=== PATIENT | female | born 1940 | race Caucasian/White ===

== ENCOUNTER 2016-10-16 11:46 | Inpatient (IN) | payer OTHER ==
[~2016-10-16] VITALS: Ht 157.5 cm; Wt 55.6 kg
[~2016-10-16 11:46] MED LIST: AMITRIPTYLINE H10 MG PO; ARAVA20 MG PO; BEN20 PO; CLINDAMYCIN HC300 MG PO; FOLIC ACID1 MG PO; HUMIRA10 MG/0.2 SC; HYDROCHLOROTHIA25 MG PO; LAC PO; LEVAQUIN750 MG PO; LEVOCETIRIZINE D5 M1 PO; LINZESS145 MC1 PO; LIPI20 PO; OMEPRAZOLE40 M1 PO; PANTOPRAZOLE SO40 M1 PO; PREDNISONE1 MG PO; VESICARE5 M1 PO; XARELTO10 M1 PO; ZESTRIL5 MG PO
[2016-10-16 13:06] LABS: PLATELET COUNT 277 x10^3mcL (130-400); RED CELL DISTRIBUTION WIDTH 14.5 % (11.5-14.5)
[2016-10-16 13:07] LABS: BASOPHIL % 2.8 % (0-2)
[2016-10-16 13:16] LABS: CALCIUM 8.8 mg/dL (8.5-10.1); CARBON DIOXIDE 25.7 mmol/L (21-32); CHLORIDE SERUM 97 mmol/L (98-107); CREATININE SERUM 0.9 mg/dL (0.6-1.0); GLUCOSE SERUM 96 mg/dL (74-106); POTASSIUM SERUM 3.1 mmol/L (3.5-5.1); SODIUM SERUM 135 mmol/L (136-145)
[2016-10-16 13:21] LABS: ALBUMIN 3.3 g/dL (3.4-5.0); ALKALINE PHOSPHATASE 78 U/L (46-116); ALT/SGPT 38 U/L (14-59); AST/SGOT 32 U/L (15-37); BILIRUBIN TOTAL 0.42 mg/dL (0.20-1.00); TOTAL PROTEIN, SERUM 7.1 g/dL (6.4-8.2)
[2016-10-16 14:11] LABS: microscopic required? YES; urine erythrocyte TRACE (NEGATIVE)
[2016-10-16 15:26] LABS: AMYLASE 44 U/L (25-115); LIPASE 54 IU/L (73-393)
[2016-10-16 15:34] LABS: T3 TOTAL 0.77 ng/mL
[2016-10-16 15:44] LABS: FREE T4 1.25 ng/dL (0.76-1.46); FREE THYROXINE INDEX 2.9 ug/dL (1.4-4.5); T4(THYROXINE) 8.4 ug/dL (4.7-13.3)
[2016-10-16 15:46] VITALS: BP 139/75
[2016-10-16] MEDS ORDERED: ZESTRIL10 MG PO (16:43)
[2016-10-16] MEDS ORDERED: OMEPRAZOLE40 M1 PO (16:44)
[2016-10-16 17:22] VITALS: BP 139/75
[2016-10-16 21:30] VITALS: BP 132/64
[2016-10-17 05:43] VITALS: BP 138/76
[2016-10-17 05:59] LABS: BASOPHIL % 0.4 % (0-2); PLATELET COUNT 220 x10^3mcL (130-400)
[2016-10-17 06:13] LABS: CALCIUM 7.9 mg/dL (8.5-10.1); CARBON DIOXIDE 22.5 mmol/L (21-32); CHLORIDE SERUM 105 mmol/L (98-107); CHOLESTEROL 138 mg/dL (<200); CHOLESTEROL/HDL RATIO 2.6; CREATININE SERUM 0.9 mg/dL (0.6-1.0); GLUCOSE SERUM 89 mg/dL (74-106); HDL CHOLESTEROL 53 mg/dL (40-60); MAGNESIUM 1.4 mg/dL (1.8-2.4); PHOSPHOROUS 3.5 mg/dL (2.5-4.9); POTASSIUM SERUM 3.5 mmol/L (3.5-5.1); SODIUM SERUM 139 mmol/L (136-145); TRIGLYCERIDES 83 mg/dL (<150)
[2016-10-17 06:40] LABS: RED CELL DISTRIBUTION WIDTH 15.5 % (11.5-14.5)
[2016-10-17 11:20] VITALS: BP 146/73
[2016-10-17 16:37] VITALS: Ht 157.5 cm; Wt 55.6 kg
[2016-10-17 17:42] VITALS: BP 138/64
[2016-10-17 22:42] VITALS: BP 152/73
[2016-10-18 05:18] VITALS: BP 153/82
[2016-10-18 07:31] VITALS: BP 135/75
[2016-10-18 11:28] LABS: BASOPHIL % 0.7 % (0-2); PLATELET COUNT 239 x10^3mcL (130-400)
[2016-10-18 11:30] LABS: RED CELL DISTRIBUTION WIDTH 15.5 % (11.5-14.5)
[2016-10-18 11:37] LABS: CHLORIDE SERUM 105 mmol/L (98-107); CREATININE SERUM 0.9 mg/dL (0.6-1.0); GLUCOSE SERUM 115 mg/dL (74-106); MAGNESIUM 1.8 mg/dL (1.8-2.4); PHOSPHOROUS 2.4 mg/dL (2.5-4.9); POTASSIUM SERUM 3.6 mmol/L (3.5-5.1); SODIUM SERUM 139 mmol/L (136-145)
[2016-10-18 17:34] VITALS: BP 149/86
[2016-10-18 21:26] VITALS: BP 156/63
[2016-10-19 05:17] VITALS: BP 168/83
[2016-10-19 06:15] LABS: BASOPHIL % 0.6 % (0-2); PLATELET COUNT 243 x10^3mcL (130-400)
[2016-10-19 06:21] LABS: CALCIUM 8.3 mg/dL (8.5-10.1); CARBON DIOXIDE 25.7 mmol/L (21-32); CHLORIDE SERUM 106 mmol/L (98-107); CREATININE SERUM 0.8 mg/dL (0.6-1.0); GLUCOSE SERUM 109 mg/dL (74-106); PHOSPHOROUS 3.5 mg/dL (2.5-4.9); POTASSIUM SERUM 3.2 mmol/L (3.5-5.1); SODIUM SERUM 141 mmol/L (136-145)
[2016-10-19 06:40] LABS: RED CELL DISTRIBUTION WIDTH 15.6 % (11.5-14.5)
[2016-10-19 09:19] VITALS: BP 158/85
[2016-10-19] MEDS ORDERED: LAC PO (15:22)
[2016-10-19] MEDS ORDERED: NOVAPLUS VANCO250 MG PO (15:22)
[2016-10-19 15:50] VITALS: BP 158/85
== END 2016-10-19 16:23 | disposition home or self-care (01) | DRG 371 ==
LOC: ED 11:46 → MU 13:32 → DU 13:32 → MU 10-17 06:49
PROVIDERS: Emergency Medicine; Family Medicine; ADMIT Family Medicine
DX: A04.7 Enterocolitis due to Clostridium difficile (principal); N17.0 Acute kidney failure with tubular necrosis; E87.1 Hypo-osmolality and hyponatremia; E44.0 Moderate protein-calorie malnutrition; J84.10 Pulmonary fibrosis, unspecified; E87.6 Hypokalemia; E83.42 Hypomagnesemia; I10 Essential (primary) hypertension; M51.36 Other intervertebral disc degeneration, lumbar region; M06.9 Rheumatoid arthritis, unspecified; E78.5 Hyperlipidemia, unspecified; I25.2 Old myocardial infarction; Z68.22 Body mass index [BMI] 22.0-22.9, adult; Z87.891 Personal history of nicotine dependence; Z86.718 Personal history of other venous thrombosis and embolism; Z86.73 Personal history of transient ischemic attack (TIA), and cerebral infarction without residual deficits; Z86.010 Personal history of colon polyps
CPT/HCPCS: 82962; 83880; 84439; 87046; 87046-59; 94150; J0696; J1956; J3010; J3370; J3475; J3480; J3490; J7030; Q0092

== ENCOUNTER 2016-11-08 15:38 | Inpatient (IN) | payer OTHER ==
[~2016-11-08] VITALS: Ht 157.5 cm; Wt 53.8 kg
[~2016-11-08 15:38] MED LIST changes: +NOVAPLUS VANCO250 MG PO; +ZESTRIL10 MG PO
[2016-11-08 18:06] LABS: BASOPHIL % 0.4 % (0-2); PLATELET COUNT 281 x10^3mcL (130-400)
[2016-11-08 18:07] LABS: RED CELL DISTRIBUTION WIDTH 15.6 % (11.5-14.5)
[2016-11-08 18:08] LABS: CALCIUM 8.6 mg/dL (8.5-10.1); CARBON DIOXIDE 31.7 mmol/L (21-32); CHLORIDE SERUM 99 mmol/L (98-107); CREATININE SERUM 1.2 mg/dL (0.6-1.0); GLUCOSE SERUM 106 mg/dL (74-106); POTASSIUM SERUM 4.2 mmol/L (3.5-5.1); SODIUM SERUM 136 mmol/L (136-145)
[2016-11-08 18:13] LABS: ALBUMIN 3.1 g/dL (3.4-5.0); ALKALINE PHOSPHATASE 76 U/L (46-116); ALT/SGPT 26 U/L (14-59); AMYLASE 56 U/L (25-115); AST/SGOT 22 U/L (15-37); BILIRUBIN TOTAL 0.4 mg/dL (0.20-1.00); LIPASE 63 IU/L (73-393); TOTAL PROTEIN, SERUM 6.8 g/dL (6.4-8.2)
[2016-11-08 21:16] VITALS: BP 119/68
[2016-11-08 21:18] VITALS: Ht 157.5 cm; Wt 53.8 kg
[2016-11-08 21:23] LABS: T3 TOTAL 1.04 ng/mL
[2016-11-08 21:24] LABS: FREE T4 1.16 ng/dL (0.76-1.46); FREE THYROXINE INDEX 3.3 ug/dL (1.4-4.5)
[2016-11-08 21:35] LABS: MAGNESIUM 1.5 mg/dL (1.8-2.4); PHOSPHOROUS 3.9 mg/dL (2.5-4.9)
[2016-11-08 21:36] LABS: CHOLESTEROL/HDL RATIO 2.5
[2016-11-08] MEDS ORDERED: AMITIZA8 MC1 PO (21:58)
[2016-11-08] MEDS ORDERED: LEVOCETIRIZINE D5 M1 PO ×2 (21:59→23:52)
[2016-11-08] MEDS ORDERED: HUMIRA PEN40 MG/0.8 (21:59)
[2016-11-08] MEDS ORDERED: HUMIRA40 MG/0.8 (23:47)
[2016-11-08] MEDS ORDERED: PREDNISONE1 MG (23:48)
[2016-11-08] MEDS ORDERED: ARAVA20 MG (23:49)
[2016-11-08] MEDS ORDERED: LIPI20 PO (23:50)
[2016-11-08] MEDS ORDERED: HCTZ/LISINOPRIL1 TAB PO (23:51)
[2016-11-08] MEDS ORDERED: OMEPRAZOLE40 M1 PO (23:53)
[2016-11-08] MEDS ORDERED: BEN20 PO (23:58)
[2016-11-09] VITALS (7 sets, daily range): BP systolic 83–138; BP diastolic 43–70
[2016-11-09 07:08] LABS: BASOPHIL % 0.6 % (0-2); PLATELET COUNT 246 x10^3mcL (130-400)
[2016-11-09 07:19] LABS: CALCIUM 8.2 mg/dL (8.5-10.1); CHLORIDE SERUM 101 mmol/L (98-107); CREATININE SERUM 1.3 mg/dL (0.6-1.0); GLUCOSE SERUM 116 mg/dL (74-106); MAGNESIUM 2.1 mg/dL (1.8-2.4); PHOSPHOROUS 3.9 mg/dL (2.5-4.9); POTASSIUM SERUM 3.9 mmol/L (3.5-5.1); SODIUM SERUM 137 mmol/L (136-145)
[2016-11-09 07:38] LABS: RED CELL DISTRIBUTION WIDTH 15.9 % (11.5-14.5)
[2016-11-10 05:39] VITALS: BP 112/65
[2016-11-10 05:49] LABS: UA SPECIFIC GRAVITY >=1.030 (1.005-1.035); microscopic required? YES; urine erythrocyte NEGATIVE (NEGATIVE)
[2016-11-10 06:05] LABS: AMPHETAMINE QUAL UR NONE DETECTED (NEG <=1000)
[2016-11-10 06:10] LABS: BASOPHIL % 0.7 % (0-2); PLATELET COUNT 217 x10^3mcL (130-400)
[2016-11-10 06:32] LABS: CALCIUM 7.4 mg/dL (8.5-10.1); CARBON DIOXIDE 20.4 mmol/L (21-32); CHLORIDE SERUM 104 mmol/L (98-107); CREATININE SERUM 0.9 mg/dL (0.6-1.0); GLUCOSE SERUM 84 mg/dL (74-106); MAGNESIUM 1.8 mg/dL (1.8-2.4); PHOSPHOROUS 3.4 mg/dL (2.5-4.9); POTASSIUM SERUM 3.6 mmol/L (3.5-5.1); SODIUM SERUM 136 mmol/L (136-145)
[2016-11-10 07:37] LABS: RED CELL DISTRIBUTION WIDTH 15.8 % (11.5-14.5)
[2016-11-10 10:01] VITALS: BP 100/60
[2016-11-10 14:01] VITALS: BP 123/68
[2016-11-10 18:01] VITALS: BP 130/68
[2016-11-10 20:30] VITALS: BP 120/62
[2016-11-11 05:15] VITALS: BP 156/78
[2016-11-11 06:30] LABS: BASOPHIL % 0.4 % (0-2); PLATELET COUNT 220 x10^3mcL (130-400)
[2016-11-11 06:44] LABS: RED CELL DISTRIBUTION WIDTH 15.3 % (11.5-14.5)
[2016-11-11 11:05] VITALS: BP 169/72
[2016-11-11 14:39] VITALS: BP 146/66
[2016-11-11 17:41] VITALS: BP 127/71
[2016-11-11 21:02] VITALS: BP 124/79
[2016-11-12 05:54] VITALS: BP 143/68
[2016-11-12 06:09] LABS: BASOPHIL % 0.8 % (0-2); PLATELET COUNT 227 x10^3mcL (130-400)
[2016-11-12 06:37] LABS: CALCIUM 7.4 mg/dL (8.5-10.1); CARBON DIOXIDE 23.1 mmol/L (21-32); CHLORIDE SERUM 107 mmol/L (98-107); CREATININE SERUM 0.8 mg/dL (0.6-1.0); GLUCOSE SERUM 102 mg/dL (74-106); MAGNESIUM 1.2 mg/dL (1.8-2.4); PHOSPHOROUS 2.8 mg/dL (2.5-4.9); POTASSIUM SERUM 3.1 mmol/L (3.5-5.1); SODIUM SERUM 140 mmol/L (136-145)
[2016-11-12 07:05] LABS: RED CELL DISTRIBUTION WIDTH 15.6 % (11.5-14.5)
[2016-11-12 08:00] VITALS: BP 157/75
[2016-11-12 17:33] VITALS: BP 145/83
[2016-11-12 21:51] VITALS: BP 131/78
[2016-11-13 05:58] LABS: BASOPHIL % 0.9 % (0-2); PLATELET COUNT 238 x10^3mcL (130-400)
[2016-11-13 06:01] VITALS: BP 133/89
[2016-11-13 06:20] LABS: CALCIUM 7.8 mg/dL (8.5-10.1); CARBON DIOXIDE 24.5 mmol/L (21-32); CHLORIDE SERUM 107 mmol/L (98-107); CREATININE SERUM 0.9 mg/dL (0.6-1.0); GLUCOSE SERUM 103 mg/dL (74-106); MAGNESIUM 1.7 mg/dL (1.8-2.4); PHOSPHOROUS 3.6 mg/dL (2.5-4.9); POTASSIUM SERUM 3.7 mmol/L (3.5-5.1); SODIUM SERUM 140 mmol/L (136-145)
[2016-11-13 06:31] LABS: RED CELL DISTRIBUTION WIDTH 15.5 % (11.5-14.5)
[2016-11-13 09:00] VITALS: BP 138/83
[2016-11-13 10:11] VITALS: BP 145/85
[2016-11-13] MEDS ORDERED: LAC PO (12:10)
[2016-11-13 12:40] VITALS: BP 145/85
[2016-11-13] MEDS ORDERED: VANCOCIN125 MG PO (14:42)
== END 2016-11-13 17:30 | disposition home or self-care (01) | DRG 371 ==
LOC: ED 15:38 → DU 20:37 → MU 11-11 10:28
PROVIDERS: Emergency Medicine; ADMIT Family Medicine
DX: A04.7 Enterocolitis due to Clostridium difficile (principal); N17.0 Acute kidney failure with tubular necrosis; E44.0 Moderate protein-calorie malnutrition; E83.42 Hypomagnesemia; E86.0 Dehydration; K21.9 Gastro-esophageal reflux disease without esophagitis; M06.9 Rheumatoid arthritis, unspecified; J84.10 Pulmonary fibrosis, unspecified; K57.30 Diverticulosis of large intestine without perforation or abscess without bleeding; Z68.21 Body mass index [BMI] 21.0-21.9, adult; Z87.891 Personal history of nicotine dependence; T45.1X5A Adverse effect of antineoplastic and immunosuppressive drugs, initial encounter; Y92.018 Other place in single-family (private) house as the place of occurrence of the external cause; Z79.899 Other long term (current) drug therapy
CPT/HCPCS: 82962; 83880; 84439; 87046; 87046-59; G0378; J1956; J2270; J2405; J3475; J3490; J7030; J7512; Q0092; Q9967

== ENCOUNTER 2017-04-20 17:50 | Emergency (ER) | payer OTHER ==
[~2017-04-20 17:50] MED LIST changes: +AMITIZA8 MC1 PO; +ARAVA20 MG; +HCTZ/LISINOPRIL1 TAB PO; +HUMIRA PEN40 MG/0.8; +HUMIRA40 MG/0.8; +PREDNISONE1 MG; +VANCOCIN125 MG PO
[2017-04-20 20:40] LABS: UA SPECIFIC GRAVITY 1.015 (1.005-1.035); microscopic required? YES; urine erythrocyte TRACE (NEGATIVE)
[2017-04-20 20:42] LABS: BASOPHIL % 0.9 % (0-2); PLATELET COUNT 234 x10^3mcL (130-400)
[2017-04-20 20:43] LABS: RED CELL DISTRIBUTION WIDTH 16.1 % (11.5-14.5)
[2017-04-20 20:50] LABS: CALCIUM 8.9 mg/dL (8.5-10.1); CARBON DIOXIDE 30.3 mmol/L (21-32); CHLORIDE SERUM 97 mmol/L (98-107); CREATININE SERUM 1.1 mg/dL (0.6-1.0); GLUCOSE SERUM 108 mg/dL (74-106); POTASSIUM SERUM 3.3 mmol/L (3.5-5.1); SODIUM SERUM 133 mmol/L (136-145)
[2017-04-20 20:55] LABS: ALKALINE PHOSPHATASE 91 U/L (46-116); ALT/SGPT 28 U/L (14-59); AST/SGOT 25 U/L (15-37); BILIRUBIN TOTAL 0.4 mg/dL (0.20-1.00); TOTAL PROTEIN, SERUM 7.1 g/dL (6.4-8.2)
[2017-04-20 20:57] LABS: ALBUMIN 3.3 g/dL (3.4-5.0)
[2017-04-20 22:16] VITALS: BP 143/71
== END 2017-04-20 22:34 | disposition home or self-care (01) ==
LOC: ED 17:50
PROVIDERS: Emergency Medicine
DX: G89.29 Other chronic pain (principal); M54.5 Low back pain; I10 Essential (primary) hypertension; K21.9 Gastro-esophageal reflux disease without esophagitis; E78.00 Pure hypercholesterolemia, unspecified; M19.90 Unspecified osteoarthritis, unspecified site; G62.9 Polyneuropathy, unspecified; W18.30XA Fall on same level, unspecified, initial encounter; Y93.89 Activity, other specified; Y92.89 Other specified places as the place of occurrence of the external cause; Y99.8 Other external cause status
CPT/HCPCS: J1885; J2270

== ENCOUNTER 2017-11-01 18:46 | Emergency (ER) | payer OTHER ==
[~2017-11-01] VITALS: Ht 152.4 cm; Wt 50.3 kg
[2017-11-01 19:03] VITALS: Ht 152.4 cm; Wt 50.3 kg
[2017-11-01 20:04] LABS: BASOPHIL % 0.4 % (0-2); PLATELET COUNT 277 x10^3mcL (130-400)
[2017-11-01 20:07] LABS: RED CELL DISTRIBUTION WIDTH 15.1 % (11.5-14.5)
[2017-11-01 20:31] LABS: CALCIUM 8.9 mg/dL (8.5-10.1); CARBON DIOXIDE 24.5 mmol/L (21-32); CHLORIDE SERUM 99 mmol/L (98-107); CREATININE SERUM 1.3 mg/dL (0.6-1.0); GLUCOSE SERUM 115 mg/dL (74-106); POTASSIUM SERUM 3.6 mmol/L (3.5-5.1); SODIUM SERUM 136 mmol/L (136-145)
[2017-11-01 20:35] LABS: ALBUMIN 3.6 g/dL (3.4-5.0); ALKALINE PHOSPHATASE 110 U/L (46-116); ALT/SGPT 36 U/L (14-59); AST/SGOT 30 U/L (15-37); BILIRUBIN TOTAL 0.23 mg/dL (0.20-1.00); LIPASE 50 IU/L (73-393); TOTAL PROTEIN, SERUM 7.3 g/dL (6.4-8.2)
[2017-11-01 20:36] LABS: AMYLASE 124 U/L (25-115)
[2017-11-01] MEDS ORDERED: CALTRATE 600 +1 EACH PO (20:59)
[2017-11-01] MEDS ORDERED: TYLENOL WITH CO1 TA2 PO (20:59)
[2017-11-01] MEDS ORDERED: TRAMADOL HCL50 MG PO (21:00)
[2017-11-01] MEDS ORDERED: MEDROL4 MG PO (21:01)
[2017-11-01 22:02] VITALS: BP 85/65
== END 2017-11-01 22:02 | disposition home or self-care (01) ==
LOC: ED 18:46
PROVIDERS: Emergency Medicine
DX: K59.00 Constipation, unspecified (principal); I10 Essential (primary) hypertension; E78.00 Pure hypercholesterolemia, unspecified; M19.90 Unspecified osteoarthritis, unspecified site
CPT/HCPCS: 83880; J1885

== ENCOUNTER 2018-05-27 20:47 | Emergency (ER) | payer OTHER ==
[~2018-05-27] VITALS: Ht 144.8 cm; Wt 52.2 kg
[~2018-05-27 20:47] MED LIST changes: +CALTRATE 600 +1 EACH PO; +MEDROL4 MG PO; +TRAMADOL HCL50 MG PO; +TYLENOL WITH CO1 TA2 PO
[2018-05-27 21:07] VITALS: Ht 144.8 cm; Wt 52.2 kg
[2018-05-27 22:44] LABS: BASOPHIL % 1.1 % (0-2); PLATELET COUNT 237 x10^3mcL (130-400); RED CELL DISTRIBUTION WIDTH 13.6 % (11.5-14.5)
[2018-05-27 23:03] LABS: CALCIUM 8.7 mg/dL (8.5-10.1); CARBON DIOXIDE 27.3 mmol/L (21-32); CHLORIDE SERUM 92 mmol/L (98-107); CREATININE SERUM 0.8 mg/dL (0.6-1.0); GLUCOSE SERUM 101 mg/dL (74-106); POTASSIUM SERUM 3.4 mmol/L (3.5-5.1); SODIUM SERUM 128 mmol/L (136-145)
[2018-05-27 23:08] LABS: ALBUMIN 3.5 g/dL (3.4-5.0); ALKALINE PHOSPHATASE 94 U/L (46-116); ALT/SGPT 27 U/L (14-59); AST/SGOT 27 U/L (15-37); BILIRUBIN TOTAL 0.56 mg/dL (0.20-1.00); LIPASE 48 IU/L (73-393); TOTAL PROTEIN, SERUM 7.8 g/dL (6.4-8.2)
[2018-05-28 01:08] VITALS: BP 155/84
== END 2018-05-28 01:08 | disposition home or self-care (01) ==
LOC: ED 20:47
PROVIDERS: Emergency Medicine
DX: R10.32 Left lower quadrant pain (principal); R10.31 Right lower quadrant pain; K59.00 Constipation, unspecified; I10 Essential (primary) hypertension; G62.9 Polyneuropathy, unspecified; E78.00 Pure hypercholesterolemia, unspecified; M06.9 Rheumatoid arthritis, unspecified
CPT/HCPCS: J0500; J1885; J7030

== ENCOUNTER 2018-10-20 15:14 | Emergency (ER) | payer OTHER ==
[~2018-10-20] VITALS: Ht 160 cm; Wt 63.5 kg
[2018-10-20 15:18] VITALS: Ht 160 cm; Wt 63.5 kg
[2018-10-20 16:27] LABS: BASOPHIL % 1.4 % (0-2); PLATELET COUNT 287 x10^3mcL (130-400)
[2018-10-20 16:31] LABS: CALCIUM 9.6 mg/dL (8.5-10.1); CHLORIDE SERUM 98 mmol/L (98-107); CREATININE SERUM 1.4 mg/dL (0.6-1.0); GLUCOSE SERUM 141 mg/dL (74-106); POTASSIUM SERUM 3.9 mmol/L (3.5-5.1); RED CELL DISTRIBUTION WIDTH 15.1 % (11.5-14.5); SODIUM SERUM 136 mmol/L (136-145)
[2018-10-20 16:36] LABS: ALBUMIN 3.6 g/dL (3.4-5.0); ALKALINE PHOSPHATASE 95 U/L (46-116); ALT/SGPT 27 U/L (14-59); AST/SGOT 17 U/L (15-37); BILIRUBIN TOTAL 0.25 mg/dL (0.20-1.00); LIPASE 40 IU/L (73-393); TOTAL PROTEIN, SERUM 8.1 g/dL (6.4-8.2)
[2018-10-20 19:00] VITALS: BP 160/97
== END 2018-10-20 19:00 | disposition home or self-care (01) ==
LOC: ED 15:14
PROVIDERS: Emergency Medicine
DX: K52.9 Noninfective gastroenteritis and colitis, unspecified (principal); I10 Essential (primary) hypertension; F41.9 Anxiety disorder, unspecified; K21.9 Gastro-esophageal reflux disease without esophagitis; E78.00 Pure hypercholesterolemia, unspecified
CPT/HCPCS: J0500; J1885; J2405

== ENCOUNTER 2019-01-13 10:34 | Emergency (ER) | payer OTHER ==
[~2019-01-13] VITALS: Ht 152.4 cm; Wt 63.5 kg
[2019-01-13 13:31] VITALS: BP 145/73
== END 2019-01-13 13:35 | disposition home or self-care (01) ==
LOC: ED 10:34
DX: S22.089A Unspecified fracture of T11-T12 vertebra, initial encounter for closed fracture (principal); I10 Essential (primary) hypertension; G62.9 Polyneuropathy, unspecified; K21.9 Gastro-esophageal reflux disease without esophagitis; E78.00 Pure hypercholesterolemia, unspecified; Z90.49 Acquired absence of other specified parts of digestive tract; Z90.89 Acquired absence of other organs; W19.XXXA Unspecified fall, initial encounter; Y93.89 Activity, other specified; Y92.89 Other specified places as the place of occurrence of the external cause; Y99.8 Other external cause status
CPT/HCPCS: J1885

== ENCOUNTER 2019-03-16 13:29 | Inpatient (IN) | payer OTHER ==
[~2019-03-16] VITALS: Ht 149.9 cm; Wt 53.1 kg
[2019-03-16] MEDS ORDERED: APAP500 MG PO (14:27)
[2019-03-16] MEDS ORDERED: FLUOXETINE HYDR10 M1 PO (14:27)
[2019-03-16] MEDS ORDERED: CALTRATE 600 +1 TA1 PO (14:28)
[2019-03-16] MEDS ORDERED: CLARITIN10 MG PO (14:28)
[2019-03-16 14:55] LABS: PLATELET COUNT 274 x10^3mcL (130-400); RED CELL DISTRIBUTION WIDTH 13.8 % (11.5-14.5)
[2019-03-16 15:12] LABS: CALCIUM 8.5 mg/dL (8.5-10.1); CARBON DIOXIDE 30.1 mmol/L (21-32); CHLORIDE SERUM 95 mmol/L (98-107); CREATININE SERUM 0.8 mg/dL (0.6-1.0); GLUCOSE SERUM 99 mg/dL (74-106); POTASSIUM SERUM 3.8 mmol/L (3.5-5.1); SODIUM SERUM 132 mmol/L (136-145)
[2019-03-16 15:16] LABS: ALKALINE PHOSPHATASE 78 U/L (46-116); ALT/SGPT 18 U/L (14-59); AST/SGOT 21 U/L (15-37); BILIRUBIN TOTAL 0.4 mg/dL (0.20-1.00); TOTAL PROTEIN, SERUM 7.5 g/dL (6.4-8.2)
[2019-03-16 15:21] LABS: ALBUMIN 3.2 g/dL (3.4-5.0)
[2019-03-16 17:04] LABS: CHOLESTEROL/HDL RATIO 2.5
[2019-03-16 17:26] VITALS: BP 152/70
[2019-03-16 20:39] VITALS: BP 138/65
[2019-03-17 04:53] VITALS: BP 144/76
[2019-03-17 06:57] LABS: CALCIUM 8.8 mg/dL (8.5-10.1); CHLORIDE SERUM 96 mmol/L (98-107); CREATININE SERUM 0.7 mg/dL (0.6-1.0); GLUCOSE SERUM 140 mg/dL (74-106); MAGNESIUM 1.6 mg/dL (1.8-2.4); PHOSPHOROUS 4.2 mg/dL (2.5-4.9); POTASSIUM SERUM 3.9 mmol/L (3.5-5.1); SODIUM SERUM 135 mmol/L (136-145)
[2019-03-17 08:12] VITALS: BP 136/65
[2019-03-17 08:41] LABS: BASOPHIL % 0.5 % (0-2); PLATELET COUNT 264 x10^3mcL (130-400); RED CELL DISTRIBUTION WIDTH 13.7 % (11.5-14.5)
[2019-03-17 11:39] VITALS: BP 122/72
[2019-03-17 14:55] VITALS: BP 122/72
[2019-03-17 15:48] VITALS: BP 137/73
[2019-03-17 21:35] VITALS: BP 145/70
[2019-03-18 06:23] VITALS: BP 155/80
[2019-03-18 07:32] LABS: BASOPHIL % 0.3 % (0-2); PLATELET COUNT 288 x10^3mcL (130-400); RED CELL DISTRIBUTION WIDTH 14.3 % (11.5-14.5)
[2019-03-18 07:48] LABS: CALCIUM 8.6 mg/dL (8.5-10.1); CARBON DIOXIDE 29.5 mmol/L (21-32); CHLORIDE SERUM 99 mmol/L (98-107); CREATININE SERUM 0.9 mg/dL (0.6-1.0); GLUCOSE SERUM 143 mg/dL (74-106); POTASSIUM SERUM 4.3 mmol/L (3.5-5.1); SODIUM SERUM 135 mmol/L (136-145)
[2019-03-18 08:22] VITALS: BP 184/95
[2019-03-18 12:04] VITALS: BP 124/70
[2019-03-18 16:05] VITALS: BP 137/72
[2019-03-18 20:54] VITALS: BP 154/80
[2019-03-19 06:38] VITALS: BP 158/78
[2019-03-19 06:59] LABS: BASOPHIL % 0.1 % (0-2); PLATELET COUNT 284 x10^3mcL (130-400); RED CELL DISTRIBUTION WIDTH 14.1 % (11.5-14.5)
[2019-03-19 07:30] LABS: CALCIUM 8.1 mg/dL (8.5-10.1); CARBON DIOXIDE 27.5 mmol/L (21-32); CHLORIDE SERUM 99 mmol/L (98-107); CREATININE SERUM 0.7 mg/dL (0.6-1.0); GLUCOSE SERUM 131 mg/dL (74-106); POTASSIUM SERUM 4.1 mmol/L (3.5-5.1); SODIUM SERUM 136 mmol/L (136-145)
[2019-03-19 08:39] VITALS: BP 188/89
[2019-03-19 12:10] VITALS: BP 145/62
[2019-03-19 17:20] VITALS: BP 142/86
[2019-03-19 20:49] VITALS: BP 134/74
[2019-03-20 06:39] VITALS: BP 168/76
[2019-03-20 07:29] LABS: BASOPHIL % 0.2 % (0-2); PLATELET COUNT 287 x10^3mcL (130-400); RED CELL DISTRIBUTION WIDTH 13.9 % (11.5-14.5)
[2019-03-20 07:32] LABS: CALCIUM 8.1 mg/dL (8.5-10.1); CARBON DIOXIDE 29.5 mmol/L (21-32); CHLORIDE SERUM 97 mmol/L (98-107); CREATININE SERUM 0.8 mg/dL (0.6-1.0); GLUCOSE SERUM 121 mg/dL (74-106); POTASSIUM SERUM 4.3 mmol/L (3.5-5.1); SODIUM SERUM 134 mmol/L (136-145)
[2019-03-20 09:10] VITALS: BP 157/75
[2019-03-20] MEDS ORDERED: TAMIFLU6 MG/ML PO (10:18)
[2019-03-20 10:46] VITALS: BP 157/75
== END 2019-03-20 14:36 | disposition home or self-care (01) | DRG 193 ==
LOC: ED 13:29 → DU 16:05 → MU 03-19 11:57
PROVIDERS: Emergency Medicine; ADMIT Internal Medicine
DX: J10.1 Influenza due to other identified influenza virus with other respiratory manifestations (principal); N17.0 Acute kidney failure with tubular necrosis; E87.1 Hypo-osmolality and hyponatremia; E44.1 Mild protein-calorie malnutrition; J44.1 Chronic obstructive pulmonary disease with (acute) exacerbation; J84.10 Pulmonary fibrosis, unspecified; R09.02 Hypoxemia; E83.42 Hypomagnesemia; K21.9 Gastro-esophageal reflux disease without esophagitis; I10 Essential (primary) hypertension; E78.00 Pure hypercholesterolemia, unspecified; M06.9 Rheumatoid arthritis, unspecified; M19.90 Unspecified osteoarthritis, unspecified site; I25.2 Old myocardial infarction; Z87.891 Personal history of nicotine dependence; Z86.73 Personal history of transient ischemic attack (TIA), and cerebral infarction without residual deficits
CPT/HCPCS: 36600; 87804; 97110-GP; 97116-GP; G0378; J1956; J2920; J2930; J7030; J7620

== ENCOUNTER 2019-04-01 10:26 | Inpatient (IN) | payer OTHER ==
[~2019-04-01] VITALS: Ht 149.9 cm; Wt 54.4 kg
[~2019-04-01 10:26] MED LIST changes: +APAP500 MG PO; +CALTRATE 600 +1 TA1 PO; +CLARITIN10 MG PO; +FLUOXETINE HYDR10 M1 PO; +TAMIFLU6 MG/ML PO
--- NOTE | 2019-04-01 10:33 | NUR ---
PT. BIB [facility] S/P SYNCOPE EVENT AT HOME TODAY. PER MEDICS PT. FELL ON GROUND AND UNSURE IF SHE HIT HER HEAD. PT. C/O LOWER ABD PAIN AND CONSTIPATION. PT. AAOX4, TALKING AND RESPONDING APPROPRIATELY. NO TRAUMA OR WOUNDS NOTED. PT. PLACED ON FULL ICT DEVELOPER, 20G IV NOTED TO BE IN LEFT HAND. MEDICS REPORTS BS [address] CANTU AT BEDSIDE FOR MSE.
--- NOTE | 2019-04-01 11:11 | NUR ---
DAUGHTER AND CORPORATE GIVING MANAGER AT BEDSIDE AND STATES PT. FELL ON FLOOR, HIT BACK OF HER HEAD, AND HAD AN EPISODE OF LOC. DR. CANTU AT BEDSIDE
[2019-04-01 11:14] LABS: BASOPHIL % 0.9 % (0-2); PLATELET COUNT 215 x10^3mcL (130-400); RED CELL DISTRIBUTION WIDTH 13.7 % (11.5-14.5)
--- NOTE | 2019-04-01 11:18 | NUR ---
PT. STATES SHE IS UNABLE TO VOID AT THIS TIME AND REFUSED STRAIGHT CATH. INFORMED HER WE WILL PLACE HER ON BEDPAN AFTER IV INFUSION IS COMPLETE. VERBALIZED UNDERSTANDING.
--- NOTE | 2019-04-01 11:22 | NUR ---
PT. TAKEN TO CT VIA RAKESH
[2019-04-01 11:50] LABS: CALCIUM 7.5 mg/dL (8.5-10.1); CARBON DIOXIDE 30.7 mmol/L (21-32); CHLORIDE SERUM 101 mmol/L (98-107); CREATININE SERUM 0.6 mg/dL (0.6-1.0); GLUCOSE SERUM 117 mg/dL (74-106); POTASSIUM SERUM 3.2 mmol/L (3.5-5.1); SODIUM SERUM 136 mmol/L (136-145)
[2019-04-01 11:55] LABS: ALKALINE PHOSPHATASE 68 U/L (46-116); ALT/SGPT 25 U/L (14-59); AST/SGOT 18 U/L (15-37); BILIRUBIN TOTAL 0.42 mg/dL (0.20-1.00); CHOLESTEROL 158 mg/dL (<200)
--- NOTE | 2019-04-01 11:57 | NUR ---
PT. LAYING ON GURNEY IN POSITION OF COMFORT. BREATHING E/U. DENIE PAIN AT THIS TIME. FAMILY AT BEDSIDE. WILL CONTINUE TO MONITOR.
[2019-04-01 12:08] LABS: ALBUMIN 2.6 g/dL (3.4-5.0); HDL CHOLESTEROL 71 mg/dL (40-60)
--- NOTE | 2019-04-01 12:27 | NUR ---
PT. STATES SHE NEEDS TO HAVE A BM. ASSISTED UP TO RESTROOM. GAIT SLOW AND STEADY. REPORTS SHE HAD A SMALL BM. WILL CONTINUE TO MONITOR.
--- NOTE | 2019-04-01 12:55 | NUR ---
REPORT GIVEN TO VIDYA MESSINA IN TELE DEPARTMENT FOR FURTHER CARE OF PATIENT. ALL QUESTIONS AND CONCERNS ADDRESSED.
[2019-04-01 13:02] LABS: MAGNESIUM 1.4 mg/dL (1.8-2.4); PHOSPHOROUS 3.2 mg/dL (2.5-4.9)
--- NOTE | 2019-04-01 13:04 | NUR ---
BEBETO CONCRETE PUDDLER AT BEDSIDE AND PATIENT STARTED TO HAVE EIPISODE OF EMESIS. VERBAL ORDER FOR ZOFRAN IV ORDERED. ORDER FOR CT ABD AND INFULENZA SWAB ORDERED BY DR. CANTU. VIDYA MESSINA IN TELE MADE AWARE PT. STILL IN ED FOR FURTHER TESTING AND WILL CALL BACK WHEN PT. IS GOING TO FLOOR.
--- NOTE | 2019-04-01 13:09 | NUR ---
PT. TAKEN TO CT VIA RAKESH
[2019-04-01 13:29] LABS: microscopic required? NO
--- NOTE | 2019-04-01 13:39 | NUR ---
PT. UP TO RESTROOM TO VOID.
[2019-04-01 13:43] LABS: urine erythrocyte NEGATIVE (NEGATIVE)
--- NOTE | 2019-04-01 14:13 | NUR ---
PT. NOTED TO HAVE B/P READING OF AND DR. CANTU MADE AWARE AND NS 500ML BOLUS ORDERED. PT. AAOX4, TALKING AND RESPONDING APPROPRAITELY. DENIES FEELING DIZZY AT THIS TIME. FAMILY AT BEDSIDE. WILL CONTINUE TO MONITOR.
--- NOTE | 2019-04-01 15:25 | NUR ---
PT. LAYING ON GURNEY IN POSITION OF COMFORT. BREATHING E/U. NO APPARENT DISTRESS NOTED. CALL LIGHT IN REACH. WILL CONTINUE TO MONITOR.
--- NOTE | 2019-04-01 15:46 | NUR ---
PT. REPORTS SINGH 09/17 AT THIS TIME. TYLENOL PO ORDERED AND GIVEN. WILL CONTINUE TO MONITOR.
--- NOTE | 2019-04-01 15:47 | NUR ---
LAB AT BEDSIDE
[2019-04-01 17:01] VITALS: BP 139/57
--- NOTE | 2019-04-01 17:01 | NUR ---
PT. TRANSFERED TO TELE DEPARMENT FOR FURTHER CARE. TRANSFERED BY GARY MESSINA AND EMT. PT. AAOX4, TALKING AND RESPONDING APPROPRIATELY, BREATHING E/U. NAD. STABLE AT TIME OF TRANSFER.
--- NOTE | 2019-04-01 17:15 | NUR ---
RECEIEVED PT FROM ER, PT ADMIT FOR SYNCOPE, PT IS A/O X4, VERBAL RESPOSIVE, C/P HEADACHE 4/10 AT THIS TIME, LUNG SOUND CONGESTED., PRODUCTIVE COUGH, BUT DENY ANY SOB, PT IS ON 2L/MIN O2 VIA NC. PO2 95%, PT IS ON TELE 19, NSR, DENY ANY CHEST PAIN OR DISCOMFORT, BOWEL SOUND PRESENT ALL 4 QUADRANTS, NO DISTENTION, NO TENDER. PEDAL PULSE PRESENT BOTH FEET, NO EDEMA, IV AT LEFT HAND, NO LEAKING,NO INFILTRAITON. ALL ADLS ASSIST, ALL NEED MET, CALL LIGHT IN REACH, WILL CONTINUE TO MONITOR.
--- NOTE | 2019-04-01 18:50 | NUR ---
RECEIVED PATIENT FROM ER AND HAD BEEN HAVING SOB ON EXERTION AND A NON PRODUCTIVE COUGH. SHE WAS NAUSEATED AND HAD AN EMESIS IN THE ER AND IS NPO AT THIS ITME. SHE HAS RECEIVED POTASSIUM AND NOW RUNNING MAGNESIUM AND WILL GIVE ZITHROMAX WHEN RECEIVED. PATIENT IS DANISH SPEAKING WITH SOME [place] AND DAUGHTER AT BEDSIDE AND SPEAKS [place] AND IS SUPPORTIVE WITH CARE. PATIENT AT THIS TIME IS RESTING QUIETLY AND NOTED WHEEZING TO THE UPPER LOBES AND DIMINISHED TO THE LOWER AND HAS A WHEEZING NON PRODUCTIVE COUGH WITH RALES HEARD. SHE HAS ACTIVE BOWEL SOUNDS AND PULSES PALPABLE AND SKIN IS WARM AND DRY. SHE HAS HAD BEEN ADMITTED RECENTLY FOR PNEUMONIA PRIOR AND SHE SEEMS TO HAVE NO COMPLETELY RECOVERED PER THE FAMILY. FLUIDS ARE RUNNING ORDERED.
--- NOTE | 2019-04-01 19:30 | NUR ---
REC'D PT FROM DAY NURSE. FAMILY AT BEDSIDE. PT RESTING IN BED. AAOX4, SPEECH CLEAR, FOLLOWS COMMADNS. C/O SINGH. NO TYLENOL YET DUE. WILL ASK FOR ALT PAIN MED. TELE 19. DENIES CP, DIZZINESS, OR PALPITATIONS. DENIES RESP DISTRESS OR SOB. BREATHING EVEN/UNLABORED ON RA. C/O DRY COUGH. NO EDEMA NOTED. ABD SOFT/FLAT. DENIES ABD PAIN, TENDERNESS, OR N/V. VOIDING FREELY. GEN WEAKNESS. AMB WITH MIN ASSIST. IV TO LFA PATENT AND INFUSING, SITE WNL. ECCHYMOSIS BUE. CALL LIGHT WITHIN REACH, BED AT LOWEST POSITION. WILL CONTINUE TO MONITOR.
--- NOTE | 2019-04-01 19:45 | NUR ---
HUNG THE ZITHROMAX ORDERED. PATIENT HAS VISITORS AT BEDSIDE.PER THE PATIENT FAMILY SHETAKES A LOT OF DIFFERENT PAIN MEDICATIONS AT HOME. SHE IS ASKING NOW FOR SOMETHING FOR HEADACHE. TYLENOL IS ORDERED BUT TOO SOON. WILL ADVISE THE SIDDHARTH LOVE INDICATED.
[2019-04-01 20:35] VITALS: BP 148/79
--- NOTE | 2019-04-01 23:19 | NUR ---
PT C/O ABD PAIN AND SINGH 6/10, DRY COUGH, AND NOT BEING ABLE TO HAVE A BM. NORCO, ROBITUSSIN, AND LACTULOSE GIVEN PER ORDER.
--- NOTE | 2019-04-02 00:45 | NUR ---
PT RESTING IN BED WITH EYES CLOSED. LAYING ON R SIDE. NO SIGNS OF DISTRESS OR PAIN NOTED. BREATHING EVEN/UNLABORED ON 1L O2 VIA NC. CALL LIGHT WITHIN REACH, BED AT LOWEST POSITION. WILL CONTINUE TO MONITOR.
--- NOTE | 2019-04-02 04:36 | NUR ---
PT WOKEN UP FOR VITALS. COLD PRESS LOADER FOUND LFA SKIN TEAR. RED WOUND BED. 4.4 X 1.5 CM. PICTURE OBTAINED. CLEANSED WITH NS, PATTED DRY, APPLIED ADAPTIC AND SECURED WITH ISLAND DRESSING.
--- NOTE | 2019-04-02 05:37 | NUR ---
PT RESTING IN BED. C/O 09/17 ABD PAIN. DENIES N/V OR DIZZINESS. NORCO GIVEN PER ORDER. BREATHING EVEN/UNLABORED ON RA. NO SIGNIFICANT CHANGES DURING SHIFT. CALL LIGHT WITHIN REACH, BED AT LOWEST POSITION. WILL CONTINUE TO MONITOR.
[2019-04-02 07:21] LABS: BASOPHIL % 0.5 % (0-2); PLATELET COUNT 220 x10^3mcL (130-400); RED CELL DISTRIBUTION WIDTH 13.6 % (11.5-14.5)
[2019-04-02 07:59] LABS: CALCIUM 7.7 mg/dL (8.5-10.1); CARBON DIOXIDE 27.9 mmol/L (21-32); CHLORIDE SERUM 100 mmol/L (98-107); CREATININE SERUM 0.7 mg/dL (0.6-1.0); GLUCOSE SERUM 100 mg/dL (74-106); POTASSIUM SERUM 3.5 mmol/L (3.5-5.1); SODIUM SERUM 135 mmol/L (136-145)
[2019-04-02 08:21] VITALS: BP 134/70
--- NOTE | 2019-04-02 08:39 | NUR ---
[place] [address] - RECEIVED PATIENT FROM NIGHT NURSE. AWAKE, ALERT AND APPEARS ORIENTED. IV INFUSING D5NS AT 125 ML/HR. NO NAUSEA AT THIS TIME. RESPIRATIONS REGULAR. AT 0750 - CARDIAC ECHO IN PROGRESS. AT 0830 - PATIENT USED BEDSIDE COMODE FOR LARGE BM. BACK IN BED. REMAINS NPO. DENIES ANY NAUSEA AT THIS TIME
--- NOTE | 2019-04-02 09:13 | NUR ---
ECHOCARDIOGRAM COMPLETED.
[2019-04-02 12:05] VITALS: BP 126/60
--- NOTE | 2019-04-02 14:15 | NUR ---
AT 0930 - HAS BEEN SEEN BY PHYSICAL THERAPIST. PATIENT IS USING BEDSIDE COMODE WITH ASSISTANCE. AT 1100 - AMBULATED TO BATHROOM AND BACK TO BED. PATIENT APPEARS UNSTEADY. REQUIRES ASSISTANCE. PATIENT HAS HAD NO NAUSEA THIS MORNING AND IS EXPRESSING WISH TO EAT. DIET HAS BEEN ADVANCED TO CLEAR LIQUID. AT 1240 - SAT UP IN BED FOR LUNCH. AT 1330 - RECEIVED CALL FROM PATIENT'S DAUGHTER. UPDATED ON PATIENT CONDITION AND PLAN. AT 1355- MEDICATED WITH NORCO FOR C/O NECK AND BACK PAIN. ALSO GIVEN MG-OXIDE PO FOR MG LEVEL OF 1.7. PATIENT COMMENCED ON IV FLAGYL. FIRST DOSE IN PROGRESS.
--- NOTE | 2019-04-02 15:52 | NUR ---
PATIENT SLEPT FOR A TIME AFTER RECEIVING NORCO. REPORTS THAT PAIN IN NECK HAS SUBSIDED.
[2019-04-02 16:28] VITALS: BP 117/49
--- NOTE | 2019-04-02 17:33 | NUR ---
PATIENT'S DAUGHTER VISITING. ASSISTING PATIENT TO BATHROOM AND WITH NEEDS.
--- NOTE | 2019-04-02 19:06 | NUR ---
PATIENT WAS ABLE TO TOLERATED 100% OF CLEAR LIQUID DINNER. NO C/O NAUSEA OR VOMITING. C/O NECK PAIN AND WAS MEDICATED WITH NORCO PER EMAR. IV IN RAC LEAKING; CATHETER REMOVED INTACT AND IV RESITED IN RFA. IN ZITHROMAX NOW IN PROGRESS.VSS. AFEBRILE. RESPIRATIONS REGULAR. NO COUTHING THIS PM. DAUGHTER REMAINS AT BEDSIDE. WILL ENDORSE CARE TO NIGHT NURSE.
--- NOTE | 2019-04-02 19:20 | NUR ---
REC'D PT FROM DAY NURSE. DAUGHTER AT BEDSIDE. PT RESTING IN BED. AAOX4, SPEECH CLEAR, FOLLOWS COMMANDS. TELE 19. DENIES CP, DIZZINESS, OR PALPITATIONS. NO EDEMA NOTED. DENIES RESP DSITRESS OR SOB. BREATHING EVEN/UNLABORED ON 1L O2 VIA NC, SPO2 98%. REPORTS COUGH IS RESOLVING. ABD SOFT/ROUND. DENIES ABD PAIN, TENDERNESS, OR N/V. VOIDING FREELY. GEN WEAKNESS. UP WITH ASSIST AND PHYSICAL THERAPY. LFA DRESSING CDI. MILD BUE ECCHYMOSIS. REPORTS MILD PAIN TO R ARM, TOLERABLE. IV HAD JUST INFILTRATED. ICE PACK APPLIED. IV TO RFA PATENT AND INFUSING, SITE WNL. CALL LIGHT WITHIN REACH, BED AT LOWEST POSITION. WILL CONTINUE TO MONITOR.
[2019-04-02 20:32] VITALS: BP 109/51
--- NOTE | 2019-04-03 00:23 | NUR ---
PT RESTING IN BED WITH EYES CLOSED. NO SIGNS OF DISTRESS OR PAIN NOTED. BREATHING EVEN/UNLABORED ON RA. CALL LIGHT WITHIN REACH, BED AT LOWEST POSITION. WILL CONTINUE TO MONITOR.
[2019-04-03 05:04] VITALS: BP 120/57
--- NOTE | 2019-04-03 05:27 | NUR ---
PT RESTING IN BED. SPO2 86% ON RA. 1L NC APPLIED, SPO2 96%. DENIES RESP DISTRESS OR SOB. BREATHING EVEN/UNLABORED. C/O BLE PAIN 09/17. NORCO GIVEN PER ORDER. NO SIGNIFICANT CHANGES DURING SHIFT. CALL LIGHT WITHIN REACH, BED AT LOWEST POSITION. WILL ENDORSE TO DAY NURSE.
[2019-04-03 07:53] LABS: CALCIUM 7.7 mg/dL (8.5-10.1); CARBON DIOXIDE 25.1 mmol/L (21-32); CHLORIDE SERUM 102 mmol/L (98-107); CREATININE SERUM 0.6 mg/dL (0.6-1.0); GLUCOSE SERUM 100 mg/dL (74-106); MAGNESIUM 1.6 mg/dL (1.8-2.4); POTASSIUM SERUM 3.3 mmol/L (3.5-5.1); SODIUM SERUM 137 mmol/L (136-145)
[2019-04-03 07:56] LABS: BASOPHIL % 0.4 % (0-2); PLATELET COUNT 202 x10^3mcL (130-400); RED CELL DISTRIBUTION WIDTH 14.1 % (11.5-14.5)
--- NOTE | 2019-04-03 08:21 | NUR ---
AT 0720 - RECEIVED PATIENT FROM NIGHT NURSE. PATIENT AWAKE, ALERT AND APPEARS ORIENTED X 4. RESPIRATIONS REGULAR. PATIENT ON O2 VIA NC AT 1L/MIN. IV INFUSING NS AT 100 ML/HR. PATIENT APPEARS COMFORTABLE AT THIS TIME. AT 0804 - RECEIVED CALL FROM LAB WITH WBC OF 20.4 PATIENT SITTING ON SIDE OF BED EATING CLEAR LIQUID BREAKFAST. WOULD LIKE TO EAT SOLID FOOD. AT 0815 - SPOKE WITH FACETER KARLOS. NOTIFIED OF ELEVATED WBC OF 20.4. ALSO MADE AWARE OF PATIENT'S WISH TO HAVE ADVANCED DIET. SHE WILL REVIEW.
[2019-04-03 08:38] VITALS: BP 113/56
--- NOTE | 2019-04-03 11:03 | NUR ---
AT 0940 - HHAS KARLOS MADE AWARE OF PATIENT'S LOW BP 80'S/50'S. MORNING DOSE OF LISINOPRIL WAS HELD. RECEIVED ORDERS FOR CONSULT WITH VENDOR QUALITY SUPERVISOR. AT 1040 - GIVEN 40 MEQ KCL PO FOR K+ LEVEL OF 3.3 AND COMMENCED MG RIDER OF 2 GRAMS FOR MG LEVEL OF 1.6 SPOKE WITH PATIENT'S DAUGHTER RUMA. UPDATED ON PATIENT.
[2019-04-03 12:14] VITALS: BP 113/60
--- NOTE | 2019-04-03 14:32 | NUR ---
AT 1345 - PATIENT AMBULATED TO BATHROOM AND BACK TO BED. HAS HAD SMALL SEMI-LIQUID BM. STOOL COLLECTED FOR CULTURE. TAKEN TO LAB. PATIENT C/O NECK PAIN. MEDICATED WITH NORCO PER EMAR. MADE COMFORTABLE IN BED.
[2019-04-03 16:47] VITALS: BP 112/54
--- NOTE | 2019-04-03 19:11 | NUR ---
QUIET AFTERNOON. FAMILY WITH PATIENT AND INVOLVED WITH CARE. VSS. AFEBRILE. IV INFUSING NS AT 100 ML/HR. PATIENT HAS BEEN COMMENCED ON IV ZOSYN AND 1ST DOSE WAS ADMINISTERED. PATIENT TOLERATING REGULAR DIET. NO SWALLOWING DIFFICULTIES. PATIENT AMBULATES TO BATHROOM WITH ASSSITANCE FOR TOILET NEEDS. CARE ENDORSED TO NIGHT NURSE.
--- NOTE | 2019-04-03 19:20 | NUR ---
REC'D PT FROM DAY NURSE. PT RESTING IN BED. AAOX4, SPEECH CLEAR, FOLLOWS COMMANDS. TELE 19. DENIES CP, DIZZINESS, OR PALPITATIONS. DENIES RESP DISTRESS OR SOB. BRAETHING EVEN/UNLABORED ON RA, SPO2 93%. NO EDEMA NOTED. ABD SOFT/ROUND. DENIES ABD PAIN, TENDERNESS, OR N/V. VOIDING FREELY. GEN WEAKNESS. UP WITH SOME ASSIST. LFA DRESSING CDI. SOME BUE ECCHYMOSIS. IV TO RFA PATENT AND INFUSING, SITE WNL. CALL LIGHT WITHIN REACH, BED AT LOWEST POSITION, BED ALARM ON. WILL CONTINUE TO MONITOR.
[2019-04-03 21:25] VITALS: BP 120/54
--- NOTE | 2019-04-04 01:14 | NUR ---
PT RESTING IN BED WITH EYES CLOSED. NO SIGNS OF DISTRESS NOTED. BREATHING EVEN/UNLABORED ON 1L O2 VIA NC. CALL LIGHT WITHIN REACH, BED AT LOWEST POSITION, BED ALARM ON. WILL CONTINUE TO MONITOR.
[2019-04-04 05:22] VITALS: BP 142/78
--- NOTE | 2019-04-04 06:14 | NUR ---
PT RESTING IN BED WITH EYES CLOSED. BREATHING EVEN/UNLABORED ON 1L O2 VIA NC. NO SIGNS OF DISTRESS NOTED. PT AWAKENS WITH VERBAL STIMULI. DENIES PAIN AT THIS TIME. ISLAND DRESSING TO LFA REMOVED- MINIMAL SEROSANGUINEOUS DRAINAGE TO DRESSING. SKIN TEAR NOTED WITH PINK WOUND BED. 4.4 X 1.5 CM. WEEKLY PICTURE OBTAINED. CLEANSED WITH NS, PATTED DRY, APPLIED ADAPTIC THEN ISLAND DRESSING. NO SIGNIFICANT CHANGES DURING SHIFT. CALL LIGHT WITHIN REACH, BED AT LOWEST POSITION. WILL ENDORSE TO DAY NURSE.
[2019-04-04 06:23] LABS: BASOPHIL % 1.2 % (0-2); PLATELET COUNT 196 x10^3mcL (130-400); RED CELL DISTRIBUTION WIDTH 14.2 % (11.5-14.5)
[2019-04-04 06:30] LABS: CALCIUM 7.5 mg/dL (8.5-10.1); CHLORIDE SERUM 105 mmol/L (98-107); CREATININE SERUM 0.8 mg/dL (0.6-1.0); GLUCOSE SERUM 98 mg/dL (74-106); MAGNESIUM 1.6 mg/dL (1.8-2.4); POTASSIUM SERUM 3.5 mmol/L (3.5-5.1); SODIUM SERUM 140 mmol/L (136-145)
--- NOTE | 2019-04-04 07:30 | NUR ---
RECEIVED PATIENT IN BED ALERT ORIENTED. TELEL 19 NSR. IVF INFUSING WELL SITE PATENT. BUE ECCHYMOSIS AND LF/A SKIN TEAR WITH DRESSING C/D/I. O2 ON AT 1L VIA N/C. R.T. PROTOCOL IN PLACE. RESP EVEN AND UNLABORED, LUNGS DIMINISHED. NO C/O PAIN OR DISCOMOFORT.
[2019-04-04 09:45] VITALS: BP 149/83
[2019-04-04 13:29] VITALS: BP 118/61
--- NOTE | 2019-04-04 15:43 | NUR ---
PATIENT REMAINS IN BED APPEARS TO BE RESTING WELL. IVF INFUSING, IV SITE PATENT. NO FURHTEER C/O COUGH OR ABD PAIN. CONDITION APPEARS STABLE AT THIS TIME.
--- NOTE | 2019-04-04 16:35 | NUR ---
I HAVE REVIEWED THE DATA COLLECTION BY ADDICTION SOCIAL WORKER (NAME): ENTERED ON (DATE/TIME): I CONCUR WITH THE DATA AND ANY EXCEPTIONS OR COMMENTS ARE LISTED BELOW: PATIENT'S PLAN OF CARE WAS DISCUSSED AND REVIEWED WITH ADDICTION SOCIAL WORKER:KESHAV VARGAS
[2019-04-04 16:49] VITALS: BP 137/67
--- NOTE | 2019-04-04 18:01 | NUR ---
NO CHANGE IN PATIENT'S CONDITION NOTED THIS SHIFT. PATIENT'S APPETITE POOR. ONLY TAKING SPRITE AND JUICE AND CRACKERS TODAY, PER PATIENT SHE IS AFRAID SHE WILL HAVE DIARRHEA. NO DIARRHEA NOTED THIS SHIFT. PATIENT VOIDING WELL ON BSC. NO FURHTER C/O PAIN OR DISCOMOFRT.
--- NOTE | 2019-04-04 19:15 | NUR ---
CARE ASSUMED FROM OUTGOING AUTO BODY REPAIR TECHNICIAN. PT RESTING COMFORTABLY IN BED. DAUGHTER AT BEDSIDE. NO ACUTE DISTRESS NOTED. EVEN AND UNLABORED RESPIRATIONS ON 1LNC. ON TELE# [address] 117, REPOSITIONING PT IN BED. IV INTACT. DRESSING TO LFA, CDI. BED IN LOWEST POSITION. SIDE RAILS UPX2. CALL LIGHT WITHIN REACH. WILL CONTINUE TO MONITOR.
[2019-04-04 19:23] VITALS: BP 144/80
--- NOTE | 2019-04-05 00:21 | NUR ---
PT RESTING COMFORTABLY IN BED WITH EYES CLOSED. NO ACUTE DISTRESS NOTED. EVEN AND UNLABORED RESPIRATIONS ON 1LNC. WILL CONTINUE TO MONITOR.
--- NOTE | 2019-04-05 06:11 | NUR ---
PT SLEPT IN INTERVALS THROUGHOUT THE SHIFT. ALL NEEDS TENDED TO AND MET. C/O ABD PAIN MEDICATED PER EMAR. EVEN AND UNLABORED RESPIRATIONS ON 1LNC, C/O SOB AT TIMES, RT PROTOCOL IN PLACE. ON TELE # 19 READING SR/ST. IV PATENT AND INTACT RUNNING FLUIDS PER EMAR. DRESSING TO LFA, CDI. BED IN LOWEST POSITION. SIDE RAILS UPX2. CALL LIGHT WITHIN REACH. WILL CONTINUE TO MONITOR.
[2019-04-05 06:22] VITALS: BP 150/72
[2019-04-05 06:25] LABS: BASOPHIL % 1.3 % (0-2); PLATELET COUNT 201 x10^3mcL (130-400); RED CELL DISTRIBUTION WIDTH 13.5 % (11.5-14.5)
[2019-04-05 06:40] LABS: CALCIUM 7.6 mg/dL (8.5-10.1); CARBON DIOXIDE 29.1 mmol/L (21-32); CHLORIDE SERUM 100 mmol/L (98-107); CREATININE SERUM 0.7 mg/dL (0.6-1.0); GLUCOSE SERUM 104 mg/dL (74-106); MAGNESIUM 1.6 mg/dL (1.8-2.4); POTASSIUM SERUM 3.1 mmol/L (3.5-5.1); SODIUM SERUM 138 mmol/L (136-145)
--- NOTE | 2019-04-05 07:27 | NUR ---
PT LYING IN BED, EYES CLOSED. AROUSABLE TO VOICE. BREATHING EQUAL/UNLAOBRED ON 1L/NC. IVF RUNNING AT 100ML/HR. NO REDNESS/SWELLING TO IV SITE. BED IN LOW POSITION, CALL LIGHT IN REACH, SAFETY PRECAUTIONS IN PLACE. WILL CONTINUE TO MONITOR
[2019-04-05 08:15] VITALS: BP 164/83
[2019-04-05 10:00] VITALS: BP 148/78
[2019-04-05 12:06] VITALS: BP 141/78
--- NOTE | 2019-04-05 12:28 | NUR ---
Initial Nutrition Assessment: 240T/B QUENTIN PAEZ IA HR Dx: Syncope s/p fall PMHx: Colitis, Influenza B, Gastritis, Hx of stroke, Rheumatoid Arthritis, Disc Herniation, HTN, Hypocholesteremia, Pulmonary Fibrosis, ND PSHx: Appendectomy, Cholecystectomy, , Hysterectomy, polypectomy Labs: K 3.1L, BUN 4.0L, CA7.6L, MG 1.6L, A1C 6.3H, WBC 11.7H Meds: Claritin, Colace, Lipitor, Oscal, Zestril, Zithromax, Zofran, zosyn Diet: regular, high fiber PO intake since admission: (04/05) breakfast 85%, (04/04) 0% all meals Ht: 149.86 cm (59") Wt: 54.4 kg (120#) BMI: 24.2 kg/m2 Bed scale: 120# IBW: 95# (43 kg) %IBW: 126 UBW: 120# Age: 78/F Food Allergies: NKFA Skin: L forearm skin tear Mitchel: 20 Edema: none GI: Last BM: 04/04 Per H&P, Pt is a 78-year-old Frisian speaking Female who was brought in by EMS from home after witnessed syncopal episode just prior to arrival by her caregiver. No reports of head trauma, per EMS. The patient complained of lower abdominal pain and was noted to have 1 episode of non-bloody, non-bilious vomiting on route to the ED. RD Note (04/05): Patient said that she ate some of her breakfast this morning and says that she has poor appetite. Per progress note (04/04), Patient is resting in bed noted to have O2 via NC 3LPM. Problem with: N/V/D/C: none at this time Problems with: Chewing: Swallowing: none Current appetite: poor Recent wt change: none %wt change: n/a Vitamin/Supplement use: none Special diet at home: Regular Physical activity: sedentary Nutrition education given: none at this time, pt was restless and appeared to be in pain Food-drug interactions: none Education given: n/a Estimated Nutritional Needs Based on current body weight (54.4 kg) Energy: 2438-7003 kcal/day (30-35 kcal/kg for geriatric maintenance) Protein: 65-76 g/day (1.2-1.4 g/kg for geriatric maintenance) Fluid: 9533-6780 mL/day (1 mL/kcal) Nutrition Diagnosis: 1. Increased nutrient needs related to medical condition/ geriatric age as evidenced by estimated calorie and protein needs. Intervention 1. Recommend continuing regular diet at this time. Monitor/Evaluate Goal: PO intake at least 75% of estimated needs Monitor: PO intake, Labs, GI function F/U in 7 days as low risk 04/12
--- NOTE | 2019-04-05 12:28 | NUR ---
1. Recommend continuing regular diet at this time.
--- NOTE | 2019-04-05 12:35 | NUR ---
PT LYING IN BED A/A. BREATHING EQUAL/UNLABORED ON 1L/NC. NO ACUTE PAIN/ DISTRESS. IVF RUNNING. NO REDNESS/ SWELLING TO IV SITE. BED IN LOW POSITION, CALL LIGHT IN REACH, SAFETY PRECAUTIONS IN PLACE. WILL CONTINUE TO MONITOR
[2019-04-05 16:20] VITALS: BP 114/66
--- NOTE | 2019-04-05 18:32 | NUR ---
PT LYING IN BED, A/A. BREATHING EQUAL/UNLABORED ON 1L/NC. NO ACUTE PAIN DISTRESS. IVF RUNNING AT 40ML/HR. NO REDNESS/ SWELLING TO IV SITE. BED IN LOW POSITION, CALL LIGHT IN REACH, SAFETY PRECAUTIONS IN PLACE. WILL ENDORSE TO NIGHT NURSE
--- NOTE | 2019-04-05 20:00 | NUR ---
PT A/A/O X3. DAUGHTER AT BEDSIDE. PT DENIES DIZZINESS AND HEADACHE. FINE CRACKLES NOTED ON SMILEY LUNGS AND WHEEZES ON LRFT LUNGS. SPO2 96% ON NC. DENIES CHEST PAIN AND PRESSURE. BOWEL SOUNDS ACTIVE. NO C/O N/V AND ABD PAIN. SKIN TEAR NOTED ON THE LEFT FOREARM WITH DRESSING ABOUT TO COME OFF. REPLCED DRESSING WITH NON ADHESIVE DRESSING WITH ISLAND DRESSING. IV INTACT ON THE RIGHT FOREARM INFUSING WITH NS AT 40 ML/HR. PT TOLERATED IT WELL. MADE PT COMFORTABLE. PLACED CALL LIGHT WITH IN REACH. WILL CONTINUE TO MONITOR.
[2019-04-05 20:11] VITALS: BP 150/78
--- NOTE | 2019-04-05 20:45 | NUR ---
PT C/O BACK PAIN. GAVE PT NORCO PO. PT TOLERATED IT WELL. WILL CONTINUE TO MONITOR.
--- NOTE | 2019-04-05 23:51 | NUR ---
PT C/O PAIN. STATED NORCO NOT WORKED. DR. CORREA NOTIFIED. ORDERED MORPHINE IVP. PT WAS GIVEN THE MORPHINE IVP. PT TOLERATED IT WELL. WILL CONTINUE TO MONITOR.
--- NOTE | 2019-04-06 01:04 | NUR ---
PT RESTING WITH EYES CLOSED. NO DISTRESS AND DISCOMFORT NOTED. WILL CONTINUE TO MONITOR.
[2019-04-06 04:56] VITALS: BP 149/78
--- NOTE | 2019-04-06 06:25 | NUR ---
PT QUIET AND RESTING. NO C/O PAIN THUS FAR. IV INTACT AND INFUSING ORDERED. MADE PT COMFORTABLE. WILL ENDORSE TO THE AM NURSE ACCORDINGLY.
[2019-04-06 06:41] LABS: BASOPHIL % 1.4 % (0-2); PLATELET COUNT 217 x10^3mcL (130-400)
[2019-04-06 06:45] LABS: CHLORIDE SERUM 100 mmol/L (98-107); CREATININE SERUM 0.8 mg/dL (0.6-1.0); GLUCOSE SERUM 97 mg/dL (74-106); POTASSIUM SERUM 4.1 mmol/L (3.5-5.1); SODIUM SERUM 139 mmol/L (136-145)
[2019-04-06 07:47] VITALS: BP 148/74
--- NOTE | 2019-04-06 09:27 | NUR ---
AT 0710 - RECEIVED PATIENT FROM NIGHT NURSE. SLEEPING. RESPIRATIONS REGULAR. ON O2 VIA NC AT 2L/MIN. IV INFUSING NS AT 40 ML/HR. AT 0805 - PATIENT AWAKE, ALERT AND ORIENTED. DENIES NAY SOB. HAS EATEN BREAKFAST. INSTRUCTED PATIENT TO CALL FOR NURSE WITH ANY NEEDS OR WHEN WANTING TO GET OUT OF BED. AT 0855 - RT AT BEDSIDE FOR BREATHING TREATMENT.
--- NOTE | 2019-04-06 09:55 | NUR ---
RECEIVED CALL FROM PATIENT'S DAUGHTER. UPDATED ON CURRENT PLAN
[2019-04-06 16:30] VITALS: BP 134/77
--- NOTE | 2019-04-06 16:35 | NUR ---
PATIENT RESTING QUIETLY. RESPIRATIONS REGULAR. REMAINS ON O2 VIA NC AT 2L/MIN. USING BSC FOR TOILET NEEDS.
--- NOTE | 2019-04-06 19:16 | NUR ---
AT 1830 - C/O NECK PAIN AND MEDICATED WITH NORCO PER EMAR. ALSO GIVEN DOSE OF ROBITTUSEN. VSS. AFEBRILE. IV INFUSING NS AT 40ML/HR. REMAINS ON 2L VIA NC . WILL ENDORSE CARE TO NIGHT NURSE.
--- NOTE | 2019-04-06 19:30 | NUR ---
REC'D PT FROM DAY NURSE. PT RESTING IN BED. AAOX4, SPEECH CLEAR, FOLLOWS COMMANDS. MED SURG, NO TELE. DENIES CP, DIZZINESS, OR PALPITATIONS. DENIES RESP DISTRESS OR SOB. BREATHING EVEN/UNLABORED ON 2L O2 VIA NC, SPO2 96%. C/O CONGESTED COUGH. ABD SOFT/ROUND/NONTENDER. DENIES ABD PAIN OR N/V. VOIDING FREELY. MILD GEN WEAKNESS. USING BSC. AMBULATORY. FWW WITH PHYSICAL THERAPY. LFA DRESSING CDI. SOME ECCHYMOSIS BUE. IV TO RFA PATENT AND INFUSING, SITE WNL. CALL LIGHT WITHIN REACH, BED AT LOWEST POSITION, BED ALARM ON. WILL CONTINUE TO MONITOR.
[2019-04-06 19:48] VITALS: BP 146/72
[2019-04-06 20:32] VITALS: BP 134/77
--- NOTE | 2019-04-07 01:21 | NUR ---
PT RESTING IN BED WITH EYES CLOSED. BREATHING EVEN/UNLABORED ON 2L O2 VIA NC. NO SIGNS OF DISTRESS OR PAIN NOTED. CALL LIGHT WITHIN REACH, BED AT LOWEST POSITION. WILL CONTINUE TO MONITOR.
[2019-04-07 05:08] VITALS: BP 139/62
--- NOTE | 2019-04-07 06:08 | NUR ---
PT RESTING IN BED WITH EYES CLOSED. BREATHING EVEN/UNLABORED ON 2L O2 VIA NC, SPO2 95%. CHECKED SATURATION ON RA- 88%. NC REAPPLIED. NO SIGNIFICANT CHANGES DURING SHIFT. PT DENIES ANY PAIN. CALL LIGHT WITHIN REACH, BED AT LOWEST POSITION. WILL ENDORSE TO DAY NURSE.
[2019-04-07 06:28] LABS: BASOPHIL % 0.6 % (0-2); PLATELET COUNT 230 x10^3mcL (130-400)
[2019-04-07 06:31] LABS: CALCIUM 8.1 mg/dL (8.5-10.1); CARBON DIOXIDE 32.6 mmol/L (21-32); CHLORIDE SERUM 99 mmol/L (98-107); CREATININE SERUM 0.8 mg/dL (0.6-1.0); GLUCOSE SERUM 100 mg/dL (74-106); POTASSIUM SERUM 4.3 mmol/L (3.5-5.1); SODIUM SERUM 137 mmol/L (136-145)
--- NOTE | 2019-04-07 08:01 | NUR ---
AT 0720 - RECEIVED PATIENT FROM NIGHT NURSE. SLEEPING. RESPIRATIONS REGULAR. ON O2 VIA NC AT 2L/MIN. IV INFUSING NS AT 40 ML/HR. AT 0800 - AWAKE, ALERT AND ORIENTED. SITTING UP IN BED FOR BREAKFAST. RECEIVED ORDER FOR REPEAT CHEST X-RAY TODAY.
[2019-04-07 09:01] VITALS: BP 149/77
--- NOTE | 2019-04-07 09:52 | NUR ---
PATIENT ASSISTED TO BEDSIDE COMODE AND BACK TO BED. NOTED DESATURATION DURING ACTIVITY. O2 SAT 88% ON RETURN TO BED, ON ROOM AIR. PATIENT PLACED BACK ON O2 VIA NC AT 2L. MADE COMFORTABLE.
--- NOTE | 2019-04-07 10:37 | NUR ---
RECEIVED CALL FROM PATIENT'S DAUGHTER, SHANITA. UPDATED ON CURRENT PLAN. GIOVANY PRIETO CALLED DAUGHTER AND UPDATED HER ON CURRENT TREATMENT. PATIENT WILL NOT BE DISCHARGED HOME TODAY. PATIENT ENCOURAGED TO USE INSENTIVE SPIROMETER. ALSO ENCOURAGED TO KEP HEAD OF BED ELEVATED.
--- NOTE | 2019-04-07 14:12 | NUR ---
AT 1300 - SALES MANAGER [place] [employer] PER PHONE. CALLED FOR PAIN MEDICATION ORDER. MAY CONTINUE NORCO 7.5/325 MG Q 4 H PRN. MEDICATION WAS A ROUTINE DROP OFF OF ORDER AFTER 5 DAYS. AT 1315 - MEDICATED WITH NORCO PER EMAR FOR C/O NECK AND BACK PAIN. PATIENT FINDS IT DIFFICULT TO HAVE HEAD OF BED ELEVATED RECOMMENDED BY DOCTORS. HAS BEEN USING BEDSIDE COMMODE WITH ASSISTANCE. AT 1400 - APPEARS MORE COMFORTABLE AT THIS TIME.
[2019-04-07 17:04] VITALS: BP 137/71
--- NOTE | 2019-04-07 17:24 | NUR ---
SITTING UP FOR DINNER AT THIS TIME. NO FURTHER C/O PAIN.
--- NOTE | 2019-04-07 18:34 | NUR ---
AWAKE, ALERT AND ORIENTED. VSS AND WNL. AFEBRILE. IV INFUSING NS AT 40 ML/HR. RESPIRATIONS REGULAR. PATIENT REMAINS ON SUPPLIMENTAL O2 VIA NC AT 1L/MIN. PRODUCTIVE COUGH. ENCOURAGED USE OF INSNETIVE SPIROEMTER. USING BSC WITH ASSISSTANCE. EATING A REGULAR DIET. WILL ENDORSE CARE TO NIGHT NURSE.
--- NOTE | 2019-04-07 19:35 | NUR ---
RECEIVED PT FROM DAY SHIFT RN. PT AAOX4. PT DENIES SINGH/DIZZINESS. BREATHING EVEN AND UNLABORED ON NC 1L/MIN, NO SOB NOTED. RT PROTOCOL. ABD SOFT/ROUND ACTIVE BOWEL SOUNDS. DENIES ABD PAIN/N/V. IV RFA PATENT, INFUSING WELL. LFA WOUND COVERED WITH DRESSING, CDI. PT DENIES ANY PAIN/DISTRESS. CALL BUTTON WITHIN REACH. SAFETY PRECAUTIONS IN PLACE. WILL CONTINUE TO MONITOR.
[2019-04-07 20:34] VITALS: BP 145/76
--- NOTE | 2019-04-08 01:36 | NUR ---
ROUNDS MADE. PT RESTING. BREATHING EVEN AND UNLABORED NO SIGNS OF DISTRESS. IV PATENT, INFUSING WELL. CALL BUTTON WITHIN REACH. SAFETY PRECAUTIONS IN PLACE. WILL CONTINUE TO MONITOR.
[2019-04-08 05:20] VITALS: BP 130/74
--- NOTE | 2019-04-08 05:49 | NUR ---
PT SLEPT ON AND OFF THROUGHOUT THE NIGHT. BREATHING EVEN AND UNLABORED ON NC 1L/MIN. NO SOB NOTED. PT REPORTED HAVING GENERALIZED PAIN X1, MEDICATED PER EMAR WITH RELEIF. IV PATENT, INFUSING WELL WITH NO SIGNS OF INFILTRATION. PT USED BSC WITH MINIMAL ASSIST. NO SIGNS OF DISTRESS. CALL BUTTON WITHIN REACH. SAFETY PRECAUTIONS IN PLACE. WILL CONTINUE TO MONITOR AND ENDORSE CARE TO DAY SHIFT RN.
[2019-04-08 06:20] LABS: CALCIUM 8.6 mg/dL (8.5-10.1); CARBON DIOXIDE 33.3 mmol/L (21-32); CHLORIDE SERUM 100 mmol/L (98-107); CREATININE SERUM 0.9 mg/dL (0.6-1.0); GLUCOSE SERUM 94 mg/dL (74-106); POTASSIUM SERUM 4.5 mmol/L (3.5-5.1); SODIUM SERUM 138 mmol/L (136-145)
[2019-04-08 07:38] LABS: BASOPHIL % 1.1 % (0-2); PLATELET COUNT 260 x10^3mcL (130-400); RED CELL DISTRIBUTION WIDTH 13.9 % (11.5-14.5)
--- NOTE | 2019-04-08 08:20 | NUR ---
AAO TIMES 4. MED SURG. LUNGS CONGESTED BILATERALLY. SHE WAS USING BSC, SHE HAD A BM ON THE FLOOR AND IN THE COMMODE. SHE WAS FOUND ON RA, NO O2, HER O2 SAT WAS 83%. AFTER SHE WAS HELPED BACK TO BED, HER O2 WAS PLACED ON AT 1L NC, SHE WAS 90%. SHE WAS THEN PLACED ON 2L NC AND HER O2 SAT WAS 91%. RT IS PRESENT AND GIVING HER A BREATHING TX. BS'S ACTIVE TIMES 4. JACKSON WITH GENERALIZED WEAKNESS. IV SITE RFA CDI. LFA DRESING CDI.
[2019-04-08 08:48] VITALS: BP 150/76
--- NOTE | 2019-04-08 11:12 | NUR ---
CALLED TO [facility] [phone] TAKEN FROM CM NURSE'S NOTES AND INFORMED PATIENT IS D/C TODAY.
[2019-04-08] MEDS ORDERED: AUG500 PO (11:50)
[2019-04-08] MEDS ORDERED: ROBL PO (11:51)
--- NOTE | 2019-04-08 16:13 | NUR ---
REMOVED SALINE LOCK ANGIO INTACT. PATIENT REMOVED DRESSING TO LFA SKIN TEAR. I CLEANED WITH NS, AND APPLIED A VERSATEL DRESSING, AND I PROVIDED HER AND HER DAUGHTER 4 MORE VERSATELS AND WOUND CLEANSER. PATIENT AND HER DTR VERBALIZED "I UNDERSTAND" TO ALL INSTRUCTIONS. THE OXYGEN TANK WAS DELIVERED, WE ARE JUST WAITING FOR THE GRAND DAUGHTER AT HOME TO LEONAST. [facility] GETTING THE CONCENTRATOR AND THE INSTRUCTIONS WITH IT, THEN I WILL DC HER HOME WITH HER DTR AND HOME O2 TANK.
--- NOTE | 2019-04-08 16:50 | NUR ---
THE OXYGEN WAS DELIVERED TO THEIR HOME, SHE WAS DISCHARGED HOME.
== END 2019-04-08 17:54 | disposition home health service (06) | DRG 177 ==
LOC: ED 10:26 → DU 12:28 → MU 04-03 10:31 → DU 04-03 11:04 → MU 04-05 23:23
PROVIDERS: Emergency Medicine; Internal Medicine; ADMIT General Practice
DX: J69.0 Pneumonitis due to inhalation of food and vomit (principal); E43 Unspecified severe protein-calorie malnutrition; E83.42 Hypomagnesemia; K52.9 Noninfective gastroenteritis and colitis, unspecified; R55 Syncope and collapse; I51.89 Other ill-defined heart diseases; K21.9 Gastro-esophageal reflux disease without esophagitis; E78.5 Hyperlipidemia, unspecified; M05.10 Rheumatoid lung disease with rheumatoid arthritis of unspecified site; D63.8 Anemia in other chronic diseases classified elsewhere; I25.2 Old myocardial infarction; Z86.73 Personal history of transient ischemic attack (TIA), and cerebral infarction without residual deficits
CPT/HCPCS: 36600; 83880; 87046; 87046-59; 87804; 97116-GP; 97164; 97530-GP; G0378; J0456; J2270; J2405; J2543; J3475; J3490; J7030; J7620; Q0092

== ENCOUNTER 2019-05-16 13:10 | Emergency (ER) | payer OTHER ==
[~2019-05-16] VITALS: Ht 152.4 cm; Wt 52.6 kg
[~2019-05-16 13:10] MED LIST changes: +AUG500 PO; +ROBL PO
[2019-05-16 14:38] LABS: BASOPHIL % 1.5 % (0-2); PLATELET COUNT 363 x10^3mcL (130-400)
[2019-05-16 14:48] LABS: CALCIUM 8.5 mg/dL (8.5-10.1); CARBON DIOXIDE 32.3 mmol/L (21-32); CHLORIDE SERUM 97 mmol/L (98-107); CREATININE SERUM 0.6 mg/dL (0.6-1.0); GLUCOSE SERUM 94 mg/dL (74-106); POTASSIUM SERUM 3.4 mmol/L (3.5-5.1); SODIUM SERUM 136 mmol/L (136-145)
[2019-05-16 14:54] LABS: ALBUMIN 3.2 g/dL (3.4-5.0); ALKALINE PHOSPHATASE 82 U/L (46-116); ALT/SGPT 32 U/L (14-59); AST/SGOT 28 U/L (15-37); BILIRUBIN TOTAL 0.42 mg/dL (0.20-1.00); TOTAL PROTEIN, SERUM 7.7 g/dL (6.4-8.2)
[2019-05-16 17:57] VITALS: BP 124/59
== END 2019-05-16 17:58 | disposition home or self-care (01) ==
LOC: ED 13:10
PROVIDERS: Emergency Medicine
DX: J44.1 Chronic obstructive pulmonary disease with (acute) exacerbation (principal); I10 Essential (primary) hypertension; K21.9 Gastro-esophageal reflux disease without esophagitis; E78.00 Pure hypercholesterolemia, unspecified
CPT/HCPCS: 36415; 83880; 87804; J7512; J7613; J7644